=== PATIENT | female | born 1940 | race Caucasian/White ===

== ENCOUNTER 2018-10-05 11:16 | Inpatient (IN) | payer MEDICARE, MEDICAID ==
[~2018-10-05] VITALS: Ht 167.6 cm; Wt 63.5 kg
[2018-10-05] MEDS ORDERED: METHYLPREDNISOLONE SOD SUCC 125 MG/2 ML VIAL IV STA (11:43)
[2018-10-05] MEDS ORDERED: IPRATROPIUM/ALBUTEROL 0.5-3(2.5)MG/3ML NEB HHN ONE (11:45)
[2018-10-05 12:18] LABS: BASOPHILS % 0.5 % (0.0-2.0); EOSINOPHILS % 1.2 % (0.0-5.0); HEMOGLOBIN. 14.9 g/dL (12.0-16.0); LYMPHOCYTES % 15.2 % (20.0-50.0); MEAN CORPUSCULAR VOLUME 93.3 fL (81.0-99.0); MEAN PLATELET VOLUME 8.5 fl (7.4-10.4); MONOCYTES % 12.3 % (2.0-8.0); NEUTROPHILS % 70.8 % (40.0-76.0); PLATELET 298 x1000/uL (130-400); RED BLOOD CELL COUNT 4.82 mill/uL (4.2-5.4); RED CELL DISTRIBUTION WIDTH 14.3 % (11.6-14.6)
[2018-10-05 12:25] LABS: CHLORIDE 102 mEq/L (98-107)
[2018-10-05] MEDS ORDERED: IPRATROPIUM/ALBUTEROL 0.5-3(2.5)MG/3ML NEB HHN PRN (16:15)
[2018-10-05] MEDS ORDERED: NICOTINE 21MG PATCH TD ONE (16:15)
[2018-10-06 04:20] VITALS: BP 182/108
[2018-10-06] MEDS ORDERED: ASCO-339 PO (05:22)
[2018-10-06] MEDS ORDERED: ATOR20TA65 PO (05:23)
[2018-10-06] MEDS ORDERED: DULO60CA63 PO (05:30)
[2018-10-06] MEDS ORDERED: LOSA50TA20 PO (05:30)
[2018-10-06] MEDS ORDERED: FAMO20TA8 PO (05:30)
[2018-10-06] MEDS ORDERED: MULT-1116 PO (05:30)
[2018-10-06] MEDS ORDERED: ASPI-986 PO (05:30)
[2018-10-06] MEDS ORDERED: PRAV40TA58 PO (05:30)
[2018-10-06] MEDS ORDERED: DOCUSATE SODIUM 100MG CAPSULE PO PRN (08:00)
[2018-10-06] MEDS ORDERED: GUAIFENESIN 200MG/10ML SUGAR FREE UDC PO PRN (08:00)
[2018-10-06] MEDS ORDERED: ACETAMINOPHEN 325MG TABLET PO PRN (08:00)
[2018-10-06] MEDS ORDERED: CLONIDINE 0.1MG TABLET PO PRN (08:00)
[2018-10-06] MEDS ORDERED: ONDANSETRON HCL 4MG/2ML INJ IV PRN (08:00)
[2018-10-06] MEDS ORDERED: MAGNESIUM/ALUMINUM HYDROXIDE/SIMETHICONE 30ML UDC PO PRN (08:00)
[2018-10-06] MEDS ORDERED: LISINOPRIL 10MG TABLET PO SCH (09:00)
[2018-10-06] MEDS: AMLODIPINE 10MG TABLET PO SCH (10:29)
[2018-10-06] MEDS: ASCORBIC ACID 500 MG TABLET PO SCH (10:29)
[2018-10-06] MEDS: HYDROCODONE/ACETAMINOPHEN 5/325MG TABLET PO PRN ×2 (10:30→19:06)
[2018-10-06] MEDS: PREDNISONE 20MG TABLET PO SCH (10:30)
[2018-10-06] MEDS: LOSARTAN POTASSIUM 50 MG TABLET PO SCH (10:31)
[2018-10-06] MEDS: NICOTINE 21MG PATCH TD SCH (10:37)
[2018-10-06 12:00] VITALS: BP 141/80
[2018-10-06 16:00] VITALS: BP 138/82
[2018-10-06 16:57] LABS: CREATINE KINASE 179 IU/L (26-192)
[2018-10-06 16:58] LABS: CREATINE KINASE MB FRACTION 2.2 ng/mL (0.5-3.6)
[2018-10-06] MEDS ORDERED: MONTELUKAST SODIUM 10MG TABLET PO SCH (17:00)
[2018-10-06 20:00] VITALS: BP 116/68
[2018-10-06] MEDS: FAMOTIDINE 20MG TABLET PO SCH (21:28)
[2018-10-06] MEDS: ATORVASTATIN CALCIUM 20MG TABLET PO SCH (21:28)
[2018-10-06 23:19] LABS: CREATINE KINASE 166 IU/L (26-192)
[2018-10-06 23:20] LABS: CREATINE KINASE MB FRACTION 1.7 ng/mL (0.5-3.6)
[2018-10-07] VITALS: BP 130/68
[2018-10-07 04:00] VITALS: BP 156/92
[2018-10-07] MEDS: HYDROCODONE/ACETAMINOPHEN 5/325MG TABLET PO PRN ×2 (04:08→10:14)
[2018-10-07] MEDS: NICOTINE 21MG PATCH TD SCH (05:52)
[2018-10-07] MEDS: BUDESONIDE 0.5MG/2ML NEB HHN SCH ×2 (07:26→21:38)
[2018-10-07] MEDS: IPRATROPIUM/ALBUTEROL 0.5-3(2.5)MG/3ML NEB HHN SCH ×3 (07:26→21:38)
[2018-10-07 07:44] LABS: CHLORIDE 104 mEq/L (98-107)
[2018-10-07 07:55] LABS: LDL CHOLESTEROL 62 mg/dL (5-100)
[2018-10-07 07:56] LABS: HDL CHOLESTEROL 64 mg/dL (40-59); T4 FREE 1.36 ng/dL (0.76-1.46)
[2018-10-07 08:00] VITALS: BP 142/110
[2018-10-07] MEDS: LOSARTAN POTASSIUM 50 MG TABLET PO SCH (09:58)
[2018-10-07] MEDS: AMLODIPINE 10MG TABLET PO SCH (09:58)
[2018-10-07] MEDS: ASCORBIC ACID 500 MG TABLET PO SCH (09:58)
[2018-10-07] MEDS: PREDNISONE 20MG TABLET PO SCH (09:58)
[2018-10-07 10:22] LABS: BASOPHILS % 0.2 % (0.0-2.0); EOSINOPHILS % 0.2 % (0.0-5.0); HEMATOCRIT. 46.3 % (36.0-48.0); HEMOGLOBIN. 15.2 g/dL (12.0-16.0); MEAN CORPUSCULAR HEMOGLOBIN 30.6 pg (28.0-32.0); MEAN PLATELET VOLUME 8.9 fl (7.4-10.4); MONOCYTES % 13.2 % (2.0-8.0); NEUTROPHILS % 73.4 % (40.0-76.0); PLATELET 314 x1000/uL (130-400); RED BLOOD CELL COUNT 4.98 mill/uL (4.2-5.4); RED CELL DISTRIBUTION WIDTH 14.3 % (11.6-14.6)
[2018-10-07 12:00] VITALS: BP 159/86
[2018-10-07 16:00] VITALS: BP 113/87
[2018-10-07 20:01] VITALS: BP 110/65
[2018-10-07] MEDS: ATORVASTATIN CALCIUM 20MG TABLET PO SCH (20:47)
[2018-10-07] MEDS: FAMOTIDINE 20MG TABLET PO SCH (20:47)
[2018-10-08] VITALS: BP 130/78
[2018-10-08 00:10] LABS: BG CARBOXYHEMOGLOBIN 0.9 % (0.5-1.5); BG DEOXYHEMOGLOBIN 4.9 % (0.0-5.0); BG FRACTION INSPIRED OXYGEN 28; BG HCO3 ACT 27.5 mmol/L (22.0-26.0); BG METHEMOGLOBIN 0.2 % (0.0-1.5); BG PCO2 41.6 mmHg (35.0-45.0); BG PH 7.438 (7.350-7.450); BG PO2 73.1 mmHg (75.0-100.0); BG SAMPLE SITE LEFT BRACHIAL; BG VENT MODE NASAL CANNULA
[2018-10-08] MEDS: IPRATROPIUM/ALBUTEROL 0.5-3(2.5)MG/3ML NEB HHN SCH ×2 (01:30→11:55)
[2018-10-08 04:00] VITALS: BP 126/80
[2018-10-08] MEDS: NICOTINE 21MG PATCH TD SCH (05:47)
[2018-10-08 08:00] VITALS: BP 136/89
[2018-10-08] MEDS: ASCORBIC ACID 500 MG TABLET PO SCH (09:29)
[2018-10-08] MEDS: PREDNISONE 20MG TABLET PO SCH (09:29)
[2018-10-08] MEDS: LOSARTAN POTASSIUM 50 MG TABLET PO SCH (09:29)
[2018-10-08] MEDS: AMLODIPINE 10MG TABLET PO SCH (09:29)
[2018-10-08] MEDS: BUDESONIDE 0.5MG/2ML NEB HHN SCH (11:55)
[2018-10-08 12:00] VITALS: BP 128/78
[2018-10-08 14:33] VITALS: BP 128/78
[2018-10-08 16:00] VITALS: BP 110/60
== END 2018-10-08 17:35 | DRG 189 ==
LOC: ER 11:16 → 5EST 14:23 → UNDOADMIN 14:23 → 6WST 14:23 → 5EST 15:27 → ENRESERV 10-06 03:01
PROVIDERS: ADMIT Internal Medicine; ATTEND Internal Medicine
DX: J96.00 Acute respiratory failure, unspecified whether with hypoxia or hypercapnia (principal); E44.0 Moderate protein-calorie malnutrition; J44.1 Chronic obstructive pulmonary disease with (acute) exacerbation; J44.0 Chronic obstructive pulmonary disease with (acute) lower respiratory infection; F32.9 Major depressive disorder, single episode, unspecified; J20.9 Acute bronchitis, unspecified; Z60.2 Problems related to living alone; I10 Essential (primary) hypertension; F17.210 Nicotine dependence, cigarettes, uncomplicated; Z68.22 Body mass index [BMI] 22.0-22.9, adult; Z71.6 Tobacco abuse counseling
CPT/HCPCS: 36415; 36600; 71045; 80061; 82375; 82550; 82553; 82805; 82962; 83880; 84439; 84443; 84481; 84484; 87804; 93005; 94640; 96374; 99285; J2930; J7512; J7620; J7626

== ENCOUNTER 2018-12-03 16:00 | Inpatient (IN) | payer MEDICARE, MEDICAID ==
[~2018-12-03] VITALS: Ht 167.6 cm; Wt 66.0 kg
[~2018-12-03 16:00] MED LIST: ASCO-339 PO; ASPI-986 PO; ATOR20TA65 PO; DULO60CA63 PO; FAMO20TA8 PO; LOSA50TA20 PO; MULT-1116 PO; PRAV40TA58 PO
[2018-12-03 17:28] LABS: HEMATOCRIT. 41.2 % (36.0-48.0); HEMOGLOBIN. 13.4 g/dL (12.0-16.0); MEAN CORPUSCULAR HEMOGLOBIN 30.3 pg (28.0-32.0); MEAN CORPUSCULAR VOLUME 93.5 fL (81.0-99.0); MEAN PLATELET VOLUME 8.7 fl (7.4-10.4); PLATELET 254 x1000/uL (130-400); RED BLOOD CELL COUNT 4.41 mill/uL (4.2-5.4); RED CELL DISTRIBUTION WIDTH 14.7 % (11.6-14.6)
[2018-12-03 17:37] LABS: D-DIMER < 0.19 mg/L FEU (<0.50); PROTHROMBIN TIME 9.7 sec (9.1-11.1)
[2018-12-03 17:39] LABS: CHLORIDE 102 mEq/L (98-107)
[2018-12-03] MEDS ORDERED: SODIUM CHLORIDE 0.9% 1,000 ML IV ONE (17:51)
[2018-12-03 18:06] LABS: PLATELET ESTIMATE NORMAL
[2018-12-03] MEDS ORDERED: HEPARIN 25,000 UNITS PREMIX 500 ML IV SCH ×2 (18:30)
[2018-12-03] MEDS ORDERED: ONDANSETRON HCL 4MG/2ML INJ IV PRN (18:45)
[2018-12-03] MEDS ORDERED: HYDROCODONE/ACETAMINOPHEN 5/325MG TABLET PO PRN (18:45)
[2018-12-03] MEDS ORDERED: DIPHENHYDRAMINE 50MG/ML VIAL IV PRN (18:45)
[2018-12-03] MEDS ORDERED: MAGNESIUM/ALUMINUM HYDROXIDE/SIMETHICONE 30ML UDC PO PRN (18:45)
[2018-12-03] MEDS ORDERED: GUAIFENESIN 200MG/10ML SUGAR FREE UDC PO PRN (18:45)
[2018-12-03] MEDS ORDERED: IPRATROPIUM/ALBUTEROL 0.5-3(2.5)MG/3ML NEB INH PRN (18:45)
[2018-12-03] MEDS ORDERED: CLONIDINE 0.1MG TABLET PO PRN (18:45)
[2018-12-03 19:15] LABS: PHOSPHORUS 3.6 mg/dL (2.5-4.9)
[2018-12-03] MEDS ORDERED: IOHEXOL-350 100 ML BOTTLE ONE (20:12)
[2018-12-03] MEDS ORDERED: MORPHINE SULFATE 4 MG/ML CPJ (NOT FOR IM USE) IV PRN (20:45)
[2018-12-03] MEDS ORDERED: DEXT 5%/LACTATED RINGERS 1,000 ML IV NR (20:46)
[2018-12-03 23:00] VITALS: BP 144/92
[2018-12-04] VITALS (11 sets, daily range): BP systolic 118–164; BP diastolic 62–96
[2018-12-04 01:31] LABS: CREATINE KINASE 41 IU/L (26-192)
[2018-12-04 07:36] LABS: BASOPHILS % 0.3 % (0.0-2.0); EOSINOPHILS % 0.7 % (0.0-5.0); HEMATOCRIT. 41.5 % (36.0-48.0); HEMOGLOBIN. 13.6 g/dL (12.0-16.0); LYMPHOCYTES % 9.6 % (20.0-50.0); MEAN CORPUSCULAR HEMOGLOBIN 30.5 pg (28.0-32.0); MEAN CORPUSCULAR VOLUME 93.1 fL (81.0-99.0); MEAN PLATELET VOLUME 8.7 fl (7.4-10.4); MONOCYTES % 12.8 % (2.0-8.0); NEUTROPHILS % 76.6 % (40.0-76.0); PLATELET 253 x1000/uL (130-400); RED BLOOD CELL COUNT 4.46 mill/uL (4.2-5.4); RED CELL DISTRIBUTION WIDTH 14.8 % (11.6-14.6)
[2018-12-04 09:54] LABS: CHLORIDE 100 mEq/L (98-107)
[2018-12-04 11:15] LABS: CREATINE KINASE 40 IU/L (26-192)
[2018-12-04] MEDS: ENOXAPARIN 40MG/0.4ML SYR SUBCUT SCH ×2 (16:53→21:58)
[2018-12-04] MEDS: DULOXETINE HCL 60MG DR CAPSULE PO SCH (16:53)
[2018-12-04] MEDS: LOSARTAN POTASSIUM 50 MG TABLET PO SCH (16:53)
[2018-12-05] VITALS (11 sets, daily range): BP systolic 128–166; BP diastolic 77–93
[2018-12-05 06:19] LABS: PARTIAL THROMBOPLASTIN TIME 27.3 sec (23.4-31.0)
[2018-12-05 06:22] LABS: BASOPHILS % 0.3 % (0.0-2.0); EOSINOPHILS % 2.2 % (0.0-5.0); HEMATOCRIT. 42.2 % (36.0-48.0); HEMOGLOBIN. 13.8 g/dL (12.0-16.0); LYMPHOCYTES % 9.5 % (20.0-50.0); MEAN CORPUSCULAR HEMOGLOBIN 30.5 pg (28.0-32.0); MEAN CORPUSCULAR VOLUME 93.5 fL (81.0-99.0); MEAN PLATELET VOLUME 8.8 fl (7.4-10.4); MONOCYTES % 12.2 % (2.0-8.0); NEUTROPHILS % 75.8 % (40.0-76.0); PLATELET 238 x1000/uL (130-400); RED BLOOD CELL COUNT 4.51 mill/uL (4.2-5.4); RED CELL DISTRIBUTION WIDTH 14.9 % (11.6-14.6)
[2018-12-05 06:38] LABS: CHLORIDE 100 mEq/L (98-107)
[2018-12-05] MEDS: LOSARTAN POTASSIUM 50 MG TABLET PO SCH (08:56)
[2018-12-05] MEDS: DULOXETINE HCL 60MG DR CAPSULE PO SCH (09:00)
[2018-12-05] MEDS: ENOXAPARIN 40MG/0.4ML SYR SUBCUT SCH ×2 (09:00→21:06)
[2018-12-05] MEDS ORDERED: IOHEXOL-300 100 ML BOTTLE ONE (13:16)
[2018-12-05] MEDS ORDERED: IODIXANOL 320MG/ML 100 ML BOTTLE IV ONE (13:16)
[2018-12-05 14:10] LABS: CLARITY URINE CLOUDY (CLEAR); COLOR URINE YELLOW (YELLOW); KETONES URINE NEGATIVE (NEGATIVE); LEUKOCYTE ESTERASE URINE 1+ (NEGATIVE); NITRITE URINE POSITIVE (NEGATIVE); OCCULT BLOOD URINE NEGATIVE (NEGATIVE); PROTEIN URINE NEGATIVE (NEGATIVE); SPECIFIC GRAVITY URINE 1.014 (1.005-1.030)
[2018-12-05] MEDS ORDERED: MIDAZOLAM HCL 2 MG/2 ML VIAL ONE (14:24)
[2018-12-05] MEDS ORDERED: FENTANYL CITRATE/PF 50MCG/ML 2ML VIAL ONE (14:25)
[2018-12-05] MEDS ORDERED: LIDOCAINE HCL 1% 20ML VIAL (Pyxis) INJ ONE (14:26)
[2018-12-05] MEDS ORDERED: HEPARIN SODIUM 1,000 UNIT/1ML VIAL IV ONE (15:49)
[2018-12-05] MEDS ORDERED: IPRATROPIUM/ALBUTEROL 0.5-3(2.5)MG/3ML NEB HHN PRN (16:00)
[2018-12-05] MEDS: BUDESONIDE 0.5MG/2ML NEB HHN SCH ×2 (17:19→20:35)
[2018-12-05] MEDS: PREDNISONE 20MG TABLET PO SCH (17:47)
[2018-12-05] MEDS: CEFTRIAXONE 1 G PREMIX 50 ML IV SCH (17:48)
[2018-12-05] MEDS: CLOPIDOGREL 75MG TABLET PO SCH (17:48)
[2018-12-05] MEDS: GUAIFENESIN 600MG ER TABLET PO SCH (21:06)
[2018-12-06] VITALS (10 sets, daily range): BP systolic 88–146; BP diastolic 54–91
[2018-12-06 07:14] LABS: PARTIAL THROMBOPLASTIN TIME 26.1 sec (23.4-31.0); PROTHROMBIN TIME 9.8 sec (9.1-11.1)
[2018-12-06 07:20] LABS: HEMATOCRIT. 45.8 % (36.0-48.0); MEAN CORPUSCULAR HEMOGLOBIN 30.6 pg (28.0-32.0); MEAN CORPUSCULAR VOLUME 93.7 fL (81.0-99.0); MEAN PLATELET VOLUME 9.1 fl (7.4-10.4); PLATELET 244 x1000/uL (130-400); RED BLOOD CELL COUNT 4.89 mill/uL (4.2-5.4); RED CELL DISTRIBUTION WIDTH 14.6 % (11.6-14.6)
[2018-12-06] MEDS: BUDESONIDE 0.5MG/2ML NEB HHN SCH ×2 (08:04→20:42)
[2018-12-06 08:17] LABS: PLATELET ESTIMATE NORMAL
[2018-12-06] MEDS: TENOFOVIR DISOPROXIL PO SCH (08:54)
[2018-12-06] MEDS: RILPIVIRINE PO SCH (08:54)
[2018-12-06] MEDS: EMTRICITABINE PO SCH (08:54)
[2018-12-06] MEDS: GUAIFENESIN 600MG ER TABLET PO SCH ×2 (08:55→22:38)
[2018-12-06] MEDS: DULOXETINE HCL 60MG DR CAPSULE PO SCH (08:55)
[2018-12-06] MEDS: ENOXAPARIN 40MG/0.4ML SYR SUBCUT SCH ×2 (08:55→22:12)
[2018-12-06] MEDS: CLOPIDOGREL 75MG TABLET PO SCH (08:55)
[2018-12-06] MEDS: LOSARTAN POTASSIUM 50 MG TABLET PO SCH (08:55)
[2018-12-06] MEDS: PREDNISONE 20MG TABLET PO SCH (08:58)
[2018-12-06 09:10] LABS: ABSOLUTE EOSINOPHILS 0.1 x10E3/uL (0.0-0.4); ABSOLUTE LYMPHOCYTES 1.4 x10E3/uL (0.7-3.1); ABSOLUTE MONOCYTES 0.8 x10E3/uL (0.1-0.9); ABSOLUTE NEUTROPHILS 7.6 x10E3/uL (1.4-7.0); BASOPHILS 0 % (Not Estab.); HEMATOCRIT 44.5 % (34.0-46.6); HEMATOLOGY COMMENT Note: (.); HEMOGLOBIN 13.8 g/dL (11.1-15.9); LYMPHOCYTES 14 % (Not Estab.); MEAN CORPUSCULAR HEMOGLOBIN 29.8 pg (26.6-33.0); MEAN CORPUSCULAR VOLUME 96 fL (79-97); MONOCYTES 8 % (Not Estab.); NEUTROPHILS 77 % (Not Estab.); PLATELETS 267 x10E3/uL (150-379); RBC 4.63 x10E6/uL (3.77-5.28); RED CELL DISTRIBUTION WIDTH 14.5 % (12.3-15.4); WBC 9.9 x10E3/uL (3.4-10.8)
[2018-12-06 10:10] LABS: % CD 3 POS. LYMPHOCYTES 70.1 % (57.5-86.2); % CD 4 POS. LYMPHOCYTES 51.9 % (30.8-58.5); % CD 8 POS. LYMPH 18.2 % (12.0-35.5); ABSOLUTE CD 3 981 /uL (622-2402); ABSOLUTE CD 4 HELPER 727 /uL (359-1519); ABSOLUTE CD 8 SUPPRESSOR 255 /uL (109-897); CD4/CD8 RATIO 2.85 (0.92-3.72)
[2018-12-06] MEDS ORDERED: AZITHROMYCIN 500 MG TABLET PO SCH (11:15)
[2018-12-06] MEDS ORDERED: AZITHROMYCIN 250 MG TABLET PO SCH (11:30)
[2018-12-06] MEDS: NICOTINE 14MG PATCH TD SCH (12:20)
[2018-12-06] MEDS: IPRATROPIUM/ALBUTEROL 0.5-3(2.5)MG/3ML NEB HHN SCH ×2 (13:39→20:42)
[2018-12-06] MEDS: CEFTRIAXONE 1 G PREMIX 50 ML IV SCH (16:19)
[2018-12-06] MEDS ORDERED: GUAIFENESIN 600MG ER TABLET PO SCH (21:00)
[2018-12-07] VITALS (14 sets, daily range): BP systolic 101–151; BP diastolic 64–94
[2018-12-07] MEDS: IPRATROPIUM/ALBUTEROL 0.5-3(2.5)MG/3ML NEB HHN SCH ×4 (02:08→20:39)
[2018-12-07 07:38] LABS: CHLORIDE 104 mEq/L (98-107)
[2018-12-07 07:40] LABS: HEMATOCRIT. 44.5 % (36.0-48.0); HEMOGLOBIN. 14.3 g/dL (12.0-16.0); MEAN CORPUSCULAR HEMOGLOBIN 30.2 pg (28.0-32.0); MEAN CORPUSCULAR VOLUME 93.9 fL (81.0-99.0); MEAN PLATELET VOLUME 9.1 fl (7.4-10.4); PLATELET 222 x1000/uL (130-400); RED BLOOD CELL COUNT 4.74 mill/uL (4.2-5.4); RED CELL DISTRIBUTION WIDTH 15.2 % (11.6-14.6)
[2018-12-07 08:25] LABS: INR 0.9; PARTIAL THROMBOPLASTIN TIME 22.9 sec (23.4-31.0); PROTHROMBIN TIME 9.4 sec (9.1-11.1)
[2018-12-07] MEDS: BUDESONIDE 0.5MG/2ML NEB HHN SCH ×2 (09:04→20:39)
[2018-12-07] MEDS: DULOXETINE HCL 60MG DR CAPSULE PO SCH (09:11)
[2018-12-07] MEDS: LOSARTAN POTASSIUM 50 MG TABLET PO SCH (09:11)
[2018-12-07] MEDS: CLOPIDOGREL 75MG TABLET PO SCH (09:11)
[2018-12-07] MEDS: AZITHROMYCIN 250 MG TABLET PO SCH (09:11)
[2018-12-07] MEDS: PREDNISONE 20MG TABLET PO SCH (09:11)
[2018-12-07] MEDS: GUAIFENESIN 600MG ER TABLET PO SCH ×2 (09:11→22:44)
[2018-12-07] MEDS: NICOTINE 14MG PATCH TD SCH (09:12)
[2018-12-07] MEDS: ENOXAPARIN 40MG/0.4ML SYR SUBCUT SCH ×2 (09:12→22:45)
[2018-12-07] MEDS: RILPIVIRINE PO SCH (09:12)
[2018-12-07] MEDS: TENOFOVIR DISOPROXIL PO SCH (09:12)
[2018-12-07] MEDS: EMTRICITABINE PO SCH (09:12)
[2018-12-07] MEDS: CEFTRIAXONE 1 G PREMIX 50 ML IV SCH (17:18)
[2018-12-07 19:10] LABS: *HIV-1 RNA BY PCR <20 copies/mL (.)
[2018-12-07 21:00] LABS: PLATELET ESTIMATE NORMAL
[2018-12-08] MEDS: IPRATROPIUM/ALBUTEROL 0.5-3(2.5)MG/3ML NEB HHN SCH ×4 (02:07→21:28)
[2018-12-08 04:00] VITALS: BP 110/82
[2018-12-08 08:00] VITALS: BP 141/86
[2018-12-08] MEDS: ENOXAPARIN 40MG/0.4ML SYR SUBCUT SCH (09:00)
[2018-12-08] MEDS: BUDESONIDE 0.5MG/2ML NEB HHN SCH ×2 (09:32→21:29)
[2018-12-08] MEDS: DULOXETINE HCL 60MG DR CAPSULE PO SCH (10:03)
[2018-12-08] MEDS: GUAIFENESIN 600MG ER TABLET PO SCH ×2 (10:03→20:51)
[2018-12-08] MEDS: LOSARTAN POTASSIUM 50 MG TABLET PO SCH (10:04)
[2018-12-08] MEDS: AZITHROMYCIN 250 MG TABLET PO SCH (10:04)
[2018-12-08] MEDS: CLOPIDOGREL 75MG TABLET PO SCH (10:04)
[2018-12-08] MEDS: NICOTINE 14MG PATCH TD SCH (10:04)
[2018-12-08] MEDS: TENOFOVIR DISOPROXIL PO SCH (10:05)
[2018-12-08] MEDS: PREDNISONE 20MG TABLET PO SCH (10:05)
[2018-12-08] MEDS: RILPIVIRINE PO SCH (10:05)
[2018-12-08] MEDS: EMTRICITABINE PO SCH (10:05)
[2018-12-08 12:00] VITALS: BP 114/66
[2018-12-08 16:00] VITALS: BP 100/60
[2018-12-08 16:21] LABS: BG BASE EXCESS 4.4 mmol/L (-2.0-2.0); BG CARBOXYHEMOGLOBIN 1.2 % (0.5-1.5); BG FRACTION INSPIRED OXYGEN 21; BG HCO3 ACT 30.3 mmol/L (22.0-26.0); BG METHEMOGLOBIN 0.2 % (0.0-1.5); BG OXYGEN SATURATION 88.8 % (92.0-98.5); BG OXYHEMOGLOBIN 87.6 % (94.0-97.0); BG PCO2 50.7 mmHg (35.0-45.0); BG PH 7.395 (7.350-7.450); BG PO2 54.4 mmHg (75.0-100.0); BG SAMPLE SITE RIGHT BRACHIAL; BG VENT MODE ROOM AIR
[2018-12-08] MEDS: CEFTRIAXONE 1 G PREMIX 50 ML IV SCH (17:00)
[2018-12-08] MEDS ORDERED: PREDNISONE 20MG TABLET PO NR (18:15)
[2018-12-08 20:00] VITALS: BP 96/57
[2018-12-09] VITALS: BP 101/60
[2018-12-09] MEDS: IPRATROPIUM/ALBUTEROL 0.5-3(2.5)MG/3ML NEB HHN SCH ×2 (01:17→21:32)
[2018-12-09 04:00] VITALS: BP 151/91
[2018-12-09 06:56] LABS: HEMATOCRIT. 41.9 % (36.0-48.0); HEMOGLOBIN. 13.7 g/dL (12.0-16.0); MEAN CORPUSCULAR HEMOGLOBIN 30.9 pg (28.0-32.0); MEAN CORPUSCULAR VOLUME 94.3 fL (81.0-99.0); MEAN PLATELET VOLUME 8.8 fl (7.4-10.4); PLATELET 237 x1000/uL (130-400); RED BLOOD CELL COUNT 4.44 mill/uL (4.2-5.4); RED CELL DISTRIBUTION WIDTH 15.1 % (11.6-14.6)
[2018-12-09 06:58] LABS: CHLORIDE 100 mEq/L (98-107)
[2018-12-09 08:00] VITALS: BP 126/68
[2018-12-09] MEDS: DULOXETINE HCL 60MG DR CAPSULE PO SCH (08:59)
[2018-12-09] MEDS: GUAIFENESIN 600MG ER TABLET PO SCH ×2 (08:59→22:35)
[2018-12-09] MEDS: NICOTINE 14MG PATCH TD SCH (08:59)
[2018-12-09] MEDS: PREDNISONE 20MG TABLET PO SCH (08:59)
[2018-12-09] MEDS: AZITHROMYCIN 250 MG TABLET PO SCH (08:59)
[2018-12-09] MEDS: TENOFOVIR DISOPROXIL PO SCH (09:00)
[2018-12-09] MEDS: EMTRICITABINE PO SCH (09:00)
[2018-12-09] MEDS: LOSARTAN POTASSIUM 50 MG TABLET PO SCH (09:00)
[2018-12-09] MEDS: RILPIVIRINE PO SCH (09:00)
[2018-12-09] MEDS: CLOPIDOGREL 75MG TABLET PO SCH (09:00)
[2018-12-09 11:55] VITALS: BP 127/67
[2018-12-09 15:14] LABS: PLATELET ESTIMATE NORMAL
[2018-12-09 15:43] VITALS: BP 113/68
[2018-12-09] MEDS: CEFTRIAXONE 1 G PREMIX 50 ML IV SCH (17:44)
[2018-12-09 20:51] VITALS: BP 104/65
[2018-12-09] MEDS ORDERED: SODIUM POLYSTYRENE SULFONATE 15 G/60 ML BOT PO NR (22:00)
[2018-12-10 00:22] VITALS: BP 127/79
[2018-12-10] MEDS: IPRATROPIUM/ALBUTEROL 0.5-3(2.5)MG/3ML NEB HHN SCH ×3 (02:08→14:20)
[2018-12-10 04:00] VITALS: BP 122/78
[2018-12-10 08:00] VITALS: BP 139/71
[2018-12-10 08:06] LABS: BASOPHILS % 0.2 % (0.0-2.0); EOSINOPHILS % 0.2 % (0.0-5.0); HEMATOCRIT. 42.1 % (36.0-48.0); HEMOGLOBIN. 13.4 g/dL (12.0-16.0); LYMPHOCYTES % 8.3 % (20.0-50.0); MEAN CORPUSCULAR VOLUME 94.6 fL (81.0-99.0); MEAN PLATELET VOLUME 8.6 fl (7.4-10.4); MONOCYTES % 11.5 % (2.0-8.0); NEUTROPHILS % 79.8 % (40.0-76.0); PLATELET 230 x1000/uL (130-400); RED BLOOD CELL COUNT 4.46 mill/uL (4.2-5.4)
[2018-12-10 08:20] LABS: CHLORIDE 101 mEq/L (98-107)
[2018-12-10] MEDS ORDERED: LOSARTAN POTASSIUM 100 MG TABLET PO SCH (09:00)
[2018-12-10] MEDS: PREDNISONE 20MG TABLET PO SCH (09:23)
[2018-12-10] MEDS: EMTRICITABINE PO SCH (09:23)
[2018-12-10] MEDS: CLOPIDOGREL 75MG TABLET PO SCH (09:23)
[2018-12-10] MEDS: TENOFOVIR DISOPROXIL PO SCH (09:23)
[2018-12-10] MEDS: RILPIVIRINE PO SCH (09:23)
[2018-12-10] MEDS: AZITHROMYCIN 250 MG TABLET PO SCH (09:24)
[2018-12-10] MEDS: GUAIFENESIN 600MG ER TABLET PO SCH (09:24)
[2018-12-10] MEDS: DULOXETINE HCL 60MG DR CAPSULE PO SCH (09:24)
[2018-12-10] MEDS: NICOTINE 14MG PATCH TD SCH (09:25)
[2018-12-10 12:00] VITALS: BP 115/69
[2018-12-10] MEDS ORDERED: PRED10TA MT (13:04)
[2018-12-10] MEDS ORDERED: LOSA100T3 PO (13:04)
[2018-12-10] MEDS ORDERED: CLOP75TA16 PO (13:04)
[2018-12-10] MEDS ORDERED: GUAI600T44 PO (13:04)
[2018-12-10] MEDS ORDERED: AZIT250T12 PO (13:04)
[2018-12-10] MEDS ORDERED: P20 PO (13:04)
[2018-12-10 13:53] VITALS: BP 115/69
[2018-12-10] MEDS ORDERED: ACETYLCYSTEINE 100MG/ML 10% VIAL 4ML INH SCH (14:00)
[2018-12-10 16:00] VITALS: BP 103/66
== END 2018-12-10 18:15 | DRG 853 ==
LOC: ER 16:00 → 3WST 18:21 → EDBEDREQTM 18:23 → EDBEDREQ 18:23 → EDBEDREQSVC 18:23 → ENRESERV 20:22 → EDBEDREQSVC 20:54 → EDBEDREQ 21:32 → EDBEDREQSVC 21:46 → 3WST 12-04 00:03 → 6WST 12-07 23:50
PROVIDERS: ADMIT Internal Medicine; ATTEND Internal Medicine
PROC: 04CK3ZZ Extirpation of Matter from Right Femoral Artery, Percutaneous Approach (ICD-10-PCS; principal; 2018-12-05)
PROC: 047K3EZ Dilation of Right Femoral Artery with Two Intraluminal Devices, Percutaneous Approach (ICD-10-PCS; 2018-12-05)
PROC: B4101ZZ Fluoroscopy of Abdominal Aorta using Low Osmolar Contrast (ICD-10-PCS; 2018-12-05)
PROC: B41F1ZZ Fluoroscopy of Right Lower Extremity Arteries using Low Osmolar Contrast (ICD-10-PCS; 2018-12-05)
DX: A41.51 Sepsis due to Escherichia coli [E. coli] (principal); J96.00 Acute respiratory failure, unspecified whether with hypoxia or hypercapnia; I70.92 Chronic total occlusion of artery of the extremities; N39.0 Urinary tract infection, site not specified; J44.1 Chronic obstructive pulmonary disease with (acute) exacerbation; E44.0 Moderate protein-calorie malnutrition; I10 Essential (primary) hypertension; I70.221 Atherosclerosis of native arteries of extremities with rest pain, right leg; F32.9 Major depressive disorder, single episode, unspecified; S80.811A Abrasion, right lower leg, initial encounter; R32 Unspecified urinary incontinence; E78.5 Hyperlipidemia, unspecified; I99.8 Other disorder of circulatory system; F17.210 Nicotine dependence, cigarettes, uncomplicated; X58.XXXA Exposure to other specified factors, initial encounter; Y93.89 Activity, other specified; Y92.89 Other specified places as the place of occurrence of the external cause; Y99.8 Other external cause status; Z79.82 Long term (current) use of aspirin; Z86.73 Personal history of transient ischemic attack (TIA), and cerebral infarction without residual deficits; Z79.899 Other long term (current) drug therapy; Z68.23 Body mass index [BMI] 23.0-23.9, adult; Z71.6 Tobacco abuse counseling
CPT/HCPCS: 36415; 36600; 37227; 71045; 72191; 73706; 75710; 80048; 82375; 82550; 82805; 82962; 83605; 83735; 83880; 84100; 84443; 85347; 85379; 86359; 86360; 86850; 86900; 87077; 87186; 87536; 93005; 93923; 93970; 94640; 96361; 96374; 97116; 97162; 97166; 97530; 99291; C1725; C1760; C1769; C1876; C1885; C1887; C1893; C1894; J0696; J1644; J1650; J2250; J2405; J3010; J3490; J7040; J7050; J7512; J7608; J7620; J7626; Q9967; A4315